=== PATIENT | female | born 1990 ===

== ENCOUNTER 2024-09-19 20:10 | Emergency (ER) | payer SELFPAY ==
[2024-09-19] MEDS: predniSONE 20 MG Tab PO ONE (21:55)
== END 2024-09-19 22:04 | disposition home or self-care (01) ==
LOC: FB.ED 20:10
DX: S43.51XA Sprain of right acromioclavicular joint, initial encounter (principal); Z79.899 Other long term (current) drug therapy; Z88.6 Allergy status to analgesic agent; V19.3XXA Pedal cyclist (driver) (passenger) injured in unspecified nontraffic accident, initial encounter
CPT/HCPCS: 99283